=== PATIENT | female | born 1930 | race Caucasian/White ===

== ENCOUNTER 2019-02-24 09:57 | Inpatient (IN) | payer OTHER ==
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
[2019-02-24] MEDS ORDERED: SODIUM CHLORIDE 1,000 ML IV ONE (10:37)
[2019-02-24] MEDS ORDERED: ACETAMINOPHEN 1000 MG/100 ML VIAL (NON FORMULARY) IVPB ONE (10:38)
[2019-02-24] MEDS ORDERED: ACETAMINOPHEN INJECTION 100 ML IVPB ONE (10:55)
[2019-02-24 11:13] LABS: EOS % 2.4 % (0-4.5); HEMATOCRIT 40.7 % (32.4-45.2); HEMOGLOBIN 13.7 GM/dL (10.7-15.3); LYMPH % 19.7 % (8-40); MCH 30.1 pg (25.7-33.7); MCHC 33.7 g/dl (32.0-36.0); MEAN CELL VOLUME 89.3 fl (80-96); MEAN PLT VOLUME 10.1 fl (7.5-11.1); MONO % 13.3 % (3.8-10.2); NEUT % 63.6 % (42.8-82.8); PLATELET COUNT 350 K/MM3 (134-434); RBC 4.56 M/mm3 (3.60-5.2); RDW 15.6 % (11.6-15.6); WHITE BLOOD COUNT 7.4 K/mm3 (4.0-10.0)
[2019-02-24 11:25] LABS: INR 2.24 (0.83-1.09); PROTHROMBIN TIME (PATIENT) 26.7 SEC (9.7-13.0)
[2019-02-24 11:27] LABS: ACTIVATED PTT 40.6 SECONDS (25.2-36.5)
[2019-02-24] MEDS ORDERED: EPINEPHrine 1:1,000 0.3 MG/0.3 ML SYR IM ONE (11:37)
--- NOTE | 2019-02-24 11:45 | PDOC ---
Documentation entered by Quiana White SCRIBE, acting as scribe for Lizzeth Goldstein MD. Lizzeth Goldstein MD: This documentation has been prepared by the Cindy walden Amanda, SCRIBE, under my direction and personally reviewed by me in its entirety. I confirm that the documentation accurately reflects all work, treatment, procedures, and medical decision making performed by me. 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 ENT: Ears normal, nares patent, oropharynx clear without exudates. Moist mucous membranes. NECK: Normal range of motion, supple left trapezial pain LUNGS: Breath sounds equal, clear to auscultation bilaterally. HEART:Regular rate and rhythm, normal S1 and S2 without murmur, rub or gallop. ABDOMEN: Soft, nontender, normoactive bowel sounds. EXTREMITIES: Normal range of motion, no edema. NEUROLOGICAL: Cranial nerves II through XII grossly intact. Normal speech. No focal neurological deficits. No facial asymmetry SKIN: No rash, no vesicular lesions noted 02/24/19 11:41 - Medical Decision Making 02/24/19 11:42 Left head pain and lightheadedness No chest pain No vertigo Will do labs Will do CT Will re assess 02/24/19 12:22 Laboratory Tests 02/24/19 02/24/19 10:57 10:57 WBC 7.4 Hgb 13.7 Hct 40.7 Plt Count 350 D INR 2.24 H 02/24/19 12:44 Laboratory Tests 02/24/19 02/24/19 11:50 11:50 Sodium 135 L Potassium 4.7 Chloride 102 BUN 14 Creatinine 0.7 Creatine Kinase 56 Troponin I < 0.02 02/24/19 13:19 Laboratory Tests 02/24/19 12:52 Urine Nitrite Negative Ur Leukocyte Esterase 2+ H Urine WBC (Auto) 18 02/24/19 14:06 Pt slightly unsteady gait She is concerned about being sent home Will plan to place on observation PT consult
[2019-02-24 12:37] LABS: ALBUMIN 2.7 g/dl (3.4-5.0); ALK PHOS 77 U/L (45-117); ANION GAP 5 MMOL/L (8-16); BILIRUBIN,TOTAL 0.3 mg/dL (0.2-1); BLOOD UREA NITROGEN 14 mg/dL (7-18); CALCIUM 8.5 mg/dL (8.5-10.1); CHLORIDE 102 mmol/L (98-107); CO2 28 mmol/L (21-32); CREATININE 0.7 mg/dL (0.55-1.3); GLUCOSE,RANDOM 96 mg/dL (74-106); POTASSIUM 4.7 mmol/L (3.5-5.1); SGOT/AST 19 U/L (15-37); SGPT/ALT 16 U/L (13-61); SODIUM 135 mmol/L (136-145); TOT PROT 6.6 g/dl (6.4-8.2)
[2019-02-24 13:11] LABS: URINE APPEARANCE CLEAR; URINE BACTERIA 147.3 /hpf (NEGATIVE); URINE BILIRUBIN NEGATIVE (NEGATIVE); URINE CASTS 0 /lpf (0-8); URINE COLOR YELLOW; URINE GLUCOSE (UA) NEGATIVE (NEGATIVE); URINE KETONE NEGATIVE (NEGATIVE); URINE LEUK ESTERASE 2+ (NEGATIVE); URINE NITRITE NEGATIVE (NEGATIVE); URINE PROTEIN NEGATIVE (NEGATIVE); URINE RBC 2 /hpf (0-4); URINE UROBILINOGEN 0.2 mg/dL (0.2-1.0); URINE WBC 18 /hpf (0-5)
[2019-02-24] MEDS ORDERED: CEPHALEXIN MONOHYDRATE 500 MG CAPSULE (UD) PO ONE (13:29)
--- NOTE | 2019-02-24 13:37 | EKG ---
Test Reason : Blood Pressure : / mmHG Vent. Rate : 074 BPM Atrial Rate : 074 BPM P-R Int : 178 ms QRS Dur : 090 ms QT Int : 396 ms P-R-T Axes : 028 014 018 degrees QTc Int : 439 ms NORMAL SINUS RHYTHM CANNOT RULE OUT ANTERIOR INFARCT , AGE UNDETERMINED ABNORMAL ECG WHEN COMPARED WITH ECG OF 20-JAN-2014 17:53, PREMATURE VENTRICULAR COMPLEXES ARE NO LONGER PRESENT MINIMAL CRITERIA FOR ANTERIOR INFARCT ARE NOW PRESENT Confirmed by JAQUELIN DAVIDSON MD ([id number]) on 02/24/2019 1:36:49 PM Referred By: Confirmed By:JAQUELIN DAVIDSON MD
[2019-02-24] MEDS ORDERED: CEPHALEXIN MONOHYDRATE 500 MG CAPSULE (UD) ONE (13:42)
[2019-02-24] MEDS ORDERED: SODIUM CHLORIDE 0.9% 500 ML INFUS.BAG IV ONE (13:51)
[2019-02-24] MEDS ORDERED: SODIUM CHLORIDE 1,000 ML IV SCH (14:00)
[2019-02-24 15:09] VITALS: BMI 33.8
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
[2019-02-24] MEDS: WARFARIN NA 3 MG TABLET PO SCH (17:57)
[2019-02-24] MEDS: clonazePAM 0.5 MG TABLET PO PRN (17:58)
[2019-02-24] MEDS: ZOLPIDEM TARTRATE 5 MG TABLET PO PRN (21:27)
[2019-02-24] MEDS: CEPHALEXIN MONOHYDRATE 500 MG CAPSULE (UD) PO SCH (21:27)
[2019-02-24] MEDS: ATORVASTATIN CA 10 MG TABLET (FP) PO SCH (21:27)
[2019-02-25 07:14] LABS: INR 2.41 (0.83-1.09); PROTHROMBIN TIME (PATIENT) 28.7 SEC (9.7-13.0)
--- NOTE | 2019-02-25 09:00 | PN ---
Progress Note (short form) - Note Progress Note: INR 2.4 Vital Signs Period Temp Pulse Resp BP Sys/Barron Pulse Ox Last 24 Hr 97.9 F-98.3 F 73-77 18-20 100-119/60-75 94-100 S1S2 rrr lung cta abd soft nt +bs no edema weakness anxiety uti h/o DVT HTN PT eval dc planning with vns vs. STR if can not walk Problem List - Problems (1) HTN (hypertension) Code(s): I10 - ESSENTIAL (PRIMARY) HYPERTENSION Qualifiers: Hypertension type: essential hypertension Qualified Code(s): I10 - Essential (primary) hypertension (2) Personal history of venous thrombosis and embolism Code(s): Z86.718 - PERSONAL HISTORY OF OTHER VENOUS THROMBOSIS AND EMBOLISM (3) Light-headedness Code(s): R42 - DIZZINESS AND GIDDINESS (4) Risk for falls Code(s): Z91.81 - HISTORY OF FALLING (5) UTI (urinary tract infection) Code(s): N39.0 - URINARY TRACT INFECTION, SITE NOT SPECIFIED Qualifiers: Urinary tract infection type: site unspecified Hematuria presence: without hematuria Qualified Code(s): N39.0 - Urinary tract infection, site not specified (6) Unsteady gait Code(s): R26.81 - UNSTEADINESS ON FEET
[2019-02-25] MEDS ORDERED: PT OWN MED DRAWER 7, Y5N ONE (09:56)
[2019-02-25] MEDS: NADOLOL 40 MG TABLET (FP) PO SCH (09:58)
[2019-02-25] MEDS: CEPHALEXIN MONOHYDRATE 500 MG CAPSULE (UD) PO SCH ×2 (09:58→21:30)
[2019-02-25] MEDS: ESCITALOPRAM OXALATE 10 MG TABLET (FP) PO SCH (09:58)
[2019-02-25] MEDS: clonazePAM 0.5 MG TABLET PO PRN ×2 (10:37→21:30)
[2019-02-25] MEDS: WARFARIN NA 3 MG TABLET PO SCH (17:03)
[2019-02-25] MEDS: ATORVASTATIN CA 10 MG TABLET (FP) PO SCH (21:30)
[2019-02-25] MEDS: ZOLPIDEM TARTRATE 5 MG TABLET PO PRN (23:15)
[2019-02-26] MEDS: clonazePAM 0.5 MG TABLET PO PRN ×2 (08:11→19:47)
[2019-02-26] MEDS ORDERED: PT OWN MED DRAWER 7, Y5N ONE (10:12)
[2019-02-26] MEDS: CEPHALEXIN MONOHYDRATE 500 MG CAPSULE (UD) PO SCH ×2 (10:19→21:16)
[2019-02-26] MEDS: ESCITALOPRAM OXALATE 10 MG TABLET (FP) PO SCH (10:19)
[2019-02-26] MEDS: NADOLOL 40 MG TABLET (FP) PO SCH (10:20)
--- NOTE | 2019-02-26 14:57 | PN ---
Progress Note, Physician Chief Complaint: No new complaints - Current Medication List Current Medications: Active Medications Atorvastatin Calcium (Lipitor -) 10 mg PO HS [facility] Last Admin: 02/25/19 21:30 Dose: 10 mg Cephalexin HCl (Keflex -) 500 mg PO BID [facility] Last Admin: 02/26/19 10:19 Dose: 500 mg Clonazepam (Klonopin -) 0.5 mg PO Q12H PRN PRN Reason: ANXIETY Last Admin: 02/26/19 08:11 Dose: 0.5 mg Escitalopram Oxalate (Lexapro -) 5 mg PO DAILY [facility] Last Admin: 02/26/19 10:19 Dose: 5 mg Nadolol (Corgard -) 40 mg PO DAILY [facility] Last Admin: 02/26/19 10:20 Dose: 40 mg Warfarin Sodium (Coumadin -) 3 mg PO DAILY@1800 [facility] Last Admin: 02/25/19 17:03 Dose: 3 mg Zolpidem Tartrate (Ambien -) 5 mg PO HS PRN PRN Reason: INSOMNIA Last Admin: 02/25/19 23:15 Dose: 5 mg - Objective Vital Signs: Vital Signs Temperature 98.3 F 02/26/19 06:00 Pulse Rate 75 02/26/19 06:00 Respiratory Rate 20 02/25/19 22:00 Blood Pressure 140/65 02/26/19 06:00 O2 Sat by Pulse Oximetry (%) 95 02/25/19 22:00 Constitutional: Yes: No Distress Neck: Yes: Supple Cardiovascular: Yes: Regular Rate and Rhythm, S1, S2 Respiratory: Yes: CTA Bilaterally Gastrointestinal: Yes: Normal Bowel Sounds, Soft Neurological: Yes: Alert, Oriented. No: Loss of Sensation ...Motor Strength: WNL Labs: CBC, BMP 02/24/19 10:57 02/24/19 11:50 INR, PTT INR 2.41 (0.83-1.09) H 02/25/19 06:00 Problem List - Problems (1) Unsteady gait Assessment/Plan: STR vs home with VNS Code(s): R26.81 - UNSTEADINESS ON FEET
[2019-02-26] MEDS: WARFARIN NA 3 MG TABLET PO SCH (17:24)
[2019-02-26] MEDS: ATORVASTATIN CA 10 MG TABLET (FP) PO SCH (21:16)
[2019-02-26] MEDS: ZOLPIDEM TARTRATE 5 MG TABLET PO PRN (23:02)
[2019-02-27] MEDS ORDERED: PT OWN MED DRAWER 7, Y5N ONE (08:26)
[2019-02-27] MEDS: clonazePAM 0.5 MG TABLET PO PRN ×2 (08:40→19:45)
[2019-02-27] MEDS: ESCITALOPRAM OXALATE 10 MG TABLET (FP) PO SCH (09:29)
[2019-02-27] MEDS: CEPHALEXIN MONOHYDRATE 500 MG CAPSULE (UD) PO SCH ×2 (09:30→21:14)
[2019-02-27 10:19] LABS: INR 3.66 (0.83-1.09); PROTHROMBIN TIME (PATIENT) 43.8 SEC (9.7-13.0)
[2019-02-27] MEDS: NADOLOL 40 MG TABLET (FP) PO SCH (10:37)
[2019-02-27] MEDS: WARFARIN NA 3 MG TABLET PO SCH (17:14)
--- NOTE | 2019-02-27 19:36 | PN ---
Progress Note, Physician Chief Complaint: Feels better - Current Medication List Current Medications: Active Medications Atorvastatin Calcium (Lipitor -) 10 mg PO HS [facility] Last Admin: 02/26/19 21:16 Dose: 10 mg Cephalexin HCl (Keflex -) 500 mg PO BID [facility] Last Admin: 02/27/19 09:30 Dose: 500 mg Clonazepam (Klonopin -) 0.5 mg PO Q12H PRN PRN Reason: ANXIETY Last Admin: 02/27/19 08:40 Dose: 0.5 mg Escitalopram Oxalate (Lexapro -) 5 mg PO DAILY [facility] Last Admin: 02/27/19 09:29 Dose: 5 mg Nadolol (Corgard -) 40 mg PO DAILY [facility] Last Admin: 02/27/19 10:37 Dose: 40 mg Warfarin Sodium (Coumadin -) 3 mg PO DAILY@1800 [facility] Last Admin: 02/27/19 17:14 Dose: Not Given Zolpidem Tartrate (Ambien -) 5 mg PO HS PRN PRN Reason: INSOMNIA Last Admin: 02/26/19 23:02 Dose: 5 mg - Objective Vital Signs: Vital Signs Temperature 98.2 F 02/27/19 10:00 Pulse Rate 79 02/27/19 10:00 Respiratory Rate 20 02/27/19 10:00 Blood Pressure 131/66 02/27/19 10:00 O2 Sat by Pulse Oximetry (%) 95 02/27/19 09:00 Constitutional: Yes: No Distress Neck: Yes: Supple Cardiovascular: Yes: Regular Rate and Rhythm, S1, S2 Respiratory: Yes: CTA Bilaterally Gastrointestinal: Yes: Normal Bowel Sounds, Soft Neurological: Yes: Alert, Oriented. No: Loss of Sensation Labs: CBC, BMP 02/24/19 10:57 02/24/19 11:50 INR, PTT INR 3.66 (0.83-1.09) H 02/27/19 09:35 Problem List - Problems (1) Unsteady gait Assessment/Plan: STR vs home with VNS Code(s): R26.81 - UNSTEADINESS ON FEET
[2019-02-27] MEDS: ATORVASTATIN CA 10 MG TABLET (FP) PO SCH (21:14)
[2019-02-27] MEDS: ZOLPIDEM TARTRATE 5 MG TABLET PO PRN (23:27)
[2019-02-28] MEDS ORDERED: PT OWN MED DRAWER 7, Y5N ONE (09:17)
[2019-02-28] MEDS: ESCITALOPRAM OXALATE 10 MG TABLET (FP) PO SCH (09:20)
[2019-02-28] MEDS: NADOLOL 40 MG TABLET (FP) PO SCH (09:21)
[2019-02-28] MEDS: clonazePAM 0.5 MG TABLET PO PRN (09:21)
--- NOTE | 2019-02-28 09:28 | DS ---
Physical Examination Vital Signs: Vital Signs Temperature 98.3 F 02/28/19 04:49 Pulse Rate 72 02/28/19 04:49 Respiratory Rate 18 02/28/19 04:49 Blood Pressure 110/56 L 02/28/19 04:49 O2 Sat by Pulse Oximetry (%) 95 02/27/19 22:00 Constitutional: Yes: No Distress, Anxious (mildly) Eyes: Yes: Conjunctiva Clear HENT: Yes: Normocephalic Neck: Yes: Trachea Midline Cardiovascular: Yes: Regular Rate and Rhythm Respiratory: Yes: CTA Bilaterally Gastrointestinal: Yes: Normal Bowel Sounds, Soft Edema: No Peripheral Pulses WNL: Yes Neurological: Yes: WNL Labs: CBC, BMP 02/24/19 10:57 02/24/19 11:50 Discharge Summary Reason For Visit: UTI,DIZZINESS,LIGHTHEADNESS,UNSTEADY GAIT,AT RISK Current Active Problems Dizziness (Acute) HTN (hypertension) (Acute) Light-headedness (Acute) Personal history of venous thrombosis and embolism (Acute) Risk for falls (Acute) UTI (urinary tract infection) (Acute) Unsteady gait (Acute) Hospital Course: admitted for feeling lightheaded and weak, had difficulty standing up and going to the bathroom. got more and more nervous, lives alone. no vertigo, no headache, no LOC, no syncope,, no chest pain, no nausea, no diarrhea, no fever, no chills. medically stable to dc to str if still unsteady on feet. Condition: Stable - Instructions - Home Medications Comprehensive Discharge Medication List: Ambulatory Orders Atorvastatin Ca [Lipitor] 10 mg PO HS 02/24/19 Docusate Sodium [Colace -] 3 tab PO HS 02/24/19 Escitalopram Oxalate [Lexapro -] 5 mg PO DAILY 02/24/19 Nadolol 40 mg PO DAILY 02/24/19 Warfarin Na [Coumadin] 2 mg PO DAILY@1800 02/24/19 Zolpidem Tartrate [Ambien] 10 mg PO HS 02/24/19 clonazePAM [Klonopin -] 0.25 mg PO HS 02/24/19 clonazePAM [Klonopin -] 0.5 mg PO DAILY 02/24/19
[2019-02-28 15:08] VITALS: BP 117/63; PULSE 73; TEMP 97.8
== END 2019-02-28 17:55 | DRG 690 ==
LOC: JER 09:57 → SUPCPDRO 09:57 → INTOOBSV 13:48 → JERBED 13:48 → J6S 14:53 → OBSVTOIN 02-25 15:49
PROVIDERS: ADMIT Internal Medicine; ATTEND Internal Medicine
DX: N39.0 Urinary tract infection, site not specified (principal); R26.81 Unsteadiness on feet; I10 Essential (primary) hypertension; F41.9 Anxiety disorder, unspecified; R42 Dizziness and giddiness; Z86.718 Personal history of other venous thrombosis and embolism; Z79.01 Long term (current) use of anticoagulants; E66.9 Obesity, unspecified; Z91.81 History of falling; Z68.33 Body mass index [BMI] 33.0-33.9, adult
CPT/HCPCS: 36415; 70450-TC; 71045-TC-FY; 80053; 81003; 82550; 84484; 85025; 85610; 85651; 85730; 86140; 87086; 93005; 93010; 97116-GP; 97162-GP; 99284-25; G0378; J0131; J7030